=== PATIENT | male | born 1955 | race Two or more races ===

== ENCOUNTER 2016-09-04 20:10 | Emergency (ER) | payer SELFPAY ==
[~2016-09-04] VITALS: Ht 170.2 cm; Wt 72.6 kg
[2016-09-05 03:40] VITALS: BP 122/76
== END 2016-09-05 03:43 | disposition home or self-care (01) ==
LOC: EDBD 20:10 → ER 20:17
DX: S46.912A Strain of unspecified muscle, fascia and tendon at shoulder and upper arm level, left arm, initial encounter (principal); X58.XXXA Exposure to other specified factors, initial encounter; Y93.89 Activity, other specified; Y99.8 Other external cause status; Y92.89 Other specified places as the place of occurrence of the external cause
CPT/HCPCS: 73020